=== PATIENT | male | born 1935 | race Caucasian/White ===

== ENCOUNTER → 2023-09-25 15:01 | Outpatient (REF) | payer OTHER, SELFPAY ==
[2023-09-25 16:46] LABS: Blood Urea Nitrogen 17 mg/dl (9-20); Calcium 10.2 mg/dl (8.4-10.2); Carbon Dioxide 27 mmol/L (22-30); Chloride 101 mmol/L (98-107); Glucose 108 mg/dl (70-99); Potassium 4.7 mmol/L (3.5-5.1); Sodium 138 mmol/L (135-145); eGFR > 60.00
[2023-09-25 16:54] LABS: NT-proBNP 4310 pg/ml
== END ==
LOC: REG 15:01
PROVIDERS: ATTENDING PHYSICIAN Internal Medicine Cardiovascular Disease
DX: Z95.2 Presence of prosthetic heart valve (principal); I50.22 Chronic systolic (congestive) heart failure
CPT/HCPCS: 36415; 71046; 80048; 83880

== ENCOUNTER 2023-10-03 12:09 | Emergency (ER) | payer OTHER, SELFPAY ==
[2023-10-03 12:17] VITALS: BP 149/95
[2023-10-03 12:23] VITALS: BP 149/95
[2023-10-03 12:28] VITALS: BMI 31.8
--- NOTE | 2023-10-03 12:39 | ED.GENMED ---
History of Present Illness
General
Chief Complaint: Breathing Problem
Time Seen by Provider: 10/03/23 12:28
Travel History
Have you had any contact with someone who has COVID-19?: No
Do you have any symptoms of coronavirus? Fever > 100 degrees, chills, cough, shortness of breath, sore throat, loss of taste or smell, muscle aches, or headache?: No
History of Present Illness
History of Present Illness:
87-year-old male with history of coronary artery disease status post CABG x 4, hypertension, and hyperlipidemia presents to the emergency department for evaluation of persistent shortness of breath for the past 2 weeks. He saw his sampling theory teacher in
the office last week and was started on Lasix, he is awaiting an outpatient echocardiogram for the symptoms as well. States that he awoke from sleep with severe shortness of breath this morning, has gradually improved throughout the day. He did
gain 2 pounds prior to the initiation of Lasix however notes that his weight has normalized since then. No associated fevers or chills. Denies any chest pain.
Review of Systems
Review of Systems
Allergies reviewed?: Yes
All Other Systems: ROS reviewed and negative except as documented in HPI and ROS
Phy Exam
Physical Exam
Physical Exam:
GEN: Well appearing, NAD, WDWN
HEENT: Oral mucosa moist, no scleral icterus
Cardiac: Regular rate and rhythm
Lung: No respiratory distress, no tachypnea, lungs clear to auscultation bilaterally
MSK: No gross deformity or injuries
Skin: Good color, no pallor or jaundice, no rashes
Neuro: AO x3, moves all extremities freely
Psych: Calm, cooperative
Scores
Heart Failure Risk
Heart Failure Risk Score: Yes
History of Stroke or TIA: No
History of intubation for respiratory distress: No
Heart rate on ED arrival >/= 110: No
SaO2 <90% on arrival on room air: No
HR >/=110 during 3min walk test (or too ill to perform test): No
ECG has acute ischemic changes: No
Urea >/=12mmol/L (BUN 33.6mg/dL): No
Serum CO2>/=35mmol/L: No
Troponin I or T elevated to IN Level (0.4mg/dL): No
NT-proBNP >/=5,000ng/L (5,000pg/ml): No
HF Risk Score: 0
Admission Status: LOW RISK 2.8% Consider discharge to home with f/u visit to PCP/[facility]
Course
Orders/Labs/Results
Orders:
Orders
10/03/23 12:28
Electrocardiogram (*1) Urgent
Reason for Study: Other
Other Reason for Exam: Respiratory Distress
Cardiac Monitoring- Treatment ONCE
EKG- Treatment ONCE
IV Insert/Care/Rem.- Treatment PRN
CR Chest - 2 Views Urgent
Comment:
Reason For Exam: respiratory distress
O2 Therapy [RESP] Urgent
Titrate/Wean O2 to maintain O2 sat greater than (%): 93
Special Instructions: TO MAINTAIN CONTINUOUS O2 SATS >/= 93%
Pulse Ox/cont/shift [RESP] Urgent
Quantity: 1
Special Instructions: continuous pulse ox
10/03/23 12:29
Complete Blood Count/With Diff Urgent
Comprehensive Metabolic Panel Urgent
NT-proBNP Urgent
Troponin I Urgent
10/03/23 13:32
D-Dimer Urgent
Abnormal Lab Results
10/03/23 10/03/23
12:29 13:32
RBC 4.59 L 10^6/uL
(4.70-6.10)
MPV 10.5 H fL
(7.4-10.4)
Monocytes % 11.1 H %
(1.7-9.3)
D-Dimer 0.80 H ug/mlFEU
(0.00-0.50)
Carbon Dioxide 31 H mmol/L
(22-30)
Glucose 155 H mg/dl
(70-99)
Total Bilirubin 1.4 H mg/dl
(0.2-1.3)
10/03/23 12:29
10/03/23 12:29
Vital Signs
Initial and Last Documented VS:
Initial Vital Signs
Temp Pulse Resp Pulse Ox
98.1 F 79 20 96
10/03/23 12:10 10/03/23 12:10 10/03/23 12:10 10/03/23 12:10
Last Documented Vital Signs
Temp Pulse Resp BP Pulse Ox
98.1 F 69 15 152/92 95
10/03/23 12:10 10/03/23 14:00 10/03/23 14:00 10/03/23 14:00 10/03/23 15:30
MDM/Problems Addressed
MDM/Problems Addressed:
Patient's symptoms are consistent with acute on chronic congestive heart failure with paroxysmal nocturnal dyspnea however he remains clinically stable in the emergency department. D-dimer meets age-adjusted criteria thus do not suspect pulmonary
embolism. Doubt this is an acute coronary syndrome given the negative troponin and lack of chest pain. He was able to ambulate in emergency department without any significant degree of dyspnea or hypoxemia. Will have the patient increase his
diuretic for the next 3 days, heart failure follow-up advised through cardiology office
Comment
Comment:
EKG independently interpreted by me shows normal sinus rhythm with a first-degree AV block and a left bundle branch block
*Critical Care Note
Total Time (30-74mins, 75-104mins- exclusive of procedures): Not Applicable
ED Attending Note
-
Portions of this chart may have been created with voice recognition software.� Occasional wrong word or��sound alike� substitutions may have occurred due to the inherent limitations of voice recognition software.
Discharge Plan
Departure
Patient Disposition: Home (Routine Discharge)
Date of Disposition: 10/03/23
Time of Disposition: 15:02
Patient with high blood pressure during this ER visit?: No
Discharge Problem:
Acute HFrEF (heart failure with reduced ejection fraction)
Instructions: *[facility] Heart Failure Instructions
Prescriptions:
No Action
atorvastatin 40 MG tablet
40 mg PO DAILY
lisinopril 20 MG tablet
20 mg PO DAILY
docusate sodium [Colace] 100 MG capsule
100 mg PO BID
hydrochlorothiazide 25 MG tablet
25 mg PO DAILY
Hold Instructions: Discussed restarting with your sampling theory teacher or family physician
multivitamin Tablet
1 tab PO DAILY
polyethylene glycol 3350 [Miralax] 17 gram Powder In Packet
17 g PO DAILY PRN (Reason: constipation)
aspirin 325 mg Tablet
325 mg PO DAILY
escitalopram oxalate 20 mg tablet
20 mg PO DAILY
aripiprazole 2 mg tablet
2 mg PO HS
Referrals:
Horacio Nieves MD [Family Provider] -
Activity Restrictions/Additional Instructions:
Increase your lasix to 40mg daily for the next 3 days, then return to taking 20mg. If your symptoms do not improve, contact your sampling theory teacher Thursday AM
If you develop acutely worsening symptoms, return to the ER for further evaluation
Interventions
Interventions:
*Risk Screen - Suicide Last Done: 10/03/23 12:10
*General Assessment Last Done: 10/03/23 12:10
*Neglect/Abuse Screening Last Done: 10/03/23 12:10
ED- Fall Risk Assessment Last Done: 10/03/23 12:30
*Nursing Disposition Last Done: 10/03/23 15:54
ED- Cardiac Assessment Last Done: 10/03/23 12:30
ED- Pulmonary Assessment Last Done: 10/03/23 12:30
Discharge Date and Time
Discharge Date/Time: 10/03/23 15:55
Print Language: LITHUANIAN
[2023-10-03 12:41] LABS: % Basophils 1.2 % (0-2); % Eosinophils 3.1 % (0-6); % Immature Granulocytes 0.4 % (0-0.5); % Lymphocytes 27.6 % (20.5-51.1); % Monocytes 11.1 % (1.7-9.3); % Neutrophils 56.6 % (42.2-75.2); Absolute Basophils 0.1 10^3/uL (0-0.2); Absolute Eosinophils 0.2 10^3/uL (0-0.7); Absolute Lymphocytes 1.4 10^3/uL (1.2-3.4); Absolute Monocytes 0.6 10^3/uL (0.1-0.6); Absolute Neutrophils 2.9 10^3/uL (1.4-6.5); Hematocrit 40.6 % (39.0-52.0); Hemoglobin 13.9 g/dL (13.0-18.0); Mean Corp Hgb Conc. 34.2 g/dL (33.0-37.0); Mean Corpuscular Hgb 30.3 pg (27.0-31.0); Mean Corpuscular Volume 88.5 fL (80.0-94.0); Mean Platelet Volume 10.5 fL (7.4-10.4); Nucleated Red Blood Cells % 0 % (-); Platelet Count 182 10^3/uL (130-400); Red Blood Cell Count 4.59 10^6/uL (4.70-6.10); Red Cell Dist. Width 13.6 % (11.5-14.5); White Blood Cell Count 5.2 10^3/uL (4.8-10.8)
[2023-10-03 12:55] LABS: ALT (SGPT) 30 U/L (0-50); AST (SGOT) 37 U/L (17-59); Albumin 3.9 g/dl (3.5-5.0); Alkaline Phosphatase 73 U/L (38-126); Blood Urea Nitrogen 17 mg/dl (9-20); Calcium 9.4 mg/dl (8.4-10.2); Carbon Dioxide 31 mmol/L (22-30); Chloride 99 mmol/L (98-107); Estimated Creatinine Clearance 59 ml/min; Glucose 155 mg/dl (70-99); Potassium 3.5 mmol/L (3.5-5.1); Sodium 137 mmol/L (135-145); Total Bilirubin 1.4 mg/dl (0.2-1.3); Total Protein 6.5 g/dl (6.3-8.2); eGFR > 60.00
[2023-10-03 13:00] VITALS: BP 136/78
[2023-10-03 13:08] LABS: NT-proBNP 3730 pg/ml; Troponin I 0.024 ng/ml
[2023-10-03 14:00] VITALS: BP 152/92
== END 2023-10-03 15:55 | disposition home or self-care (01) ==
LOC: EMR 12:09
PROVIDERS: Physician Assistant; EMERGENCY PHYSICIAN Emergency Medicine; FAMILY PHYSICIAN Family Medicine
DX: R06.02 Shortness of breath (principal); I11.0 Hypertensive heart disease with heart failure; I50.22 Chronic systolic (congestive) heart failure; I44.0 Atrioventricular block, first degree; I25.10 Atherosclerotic heart disease of native coronary artery without angina pectoris; Z95.1 Presence of aortocoronary bypass graft; Z79.82 Long term (current) use of aspirin; Z88.1 Allergy status to other antibiotic agents; Z88.2 Allergy status to sulfonamides; Z88.8 Allergy status to other drugs, medicaments and biological substances
CPT/HCPCS: 99284; 94760; 71046; 80053; 83880; 84484; 85025; 85379; 93005

== ENCOUNTER → 2023-10-08 09:43 | Outpatient (REF) | payer OTHER, SELFPAY | LOC: HWRCS 09:43 | PROVIDERS: ATTENDING PHYSICIAN Internal Medicine Cardiovascular Disease; FAMILY PHYSICIAN Family Medicine | DX: Z95.2 Presence of prosthetic heart valve (principal) | CPT/HCPCS: 93306 ==

== ENCOUNTER 2023-10-08 22:18 | Inpatient (IN) | payer OTHER, SELFPAY ==
[2023-10-08 14:52] VITALS: BMI 29.7
[2023-10-08 14:56] VITALS: BP 147/92
[2023-10-08 15:23] LABS: % Basophils 0.9 % (0-2); % Eosinophils 3.2 % (0-6); % Immature Granulocytes 0.6 % (0-0.5); % Lymphocytes 26.8 % (20.5-51.1); % Monocytes 11.1 % (1.7-9.3); % Neutrophils 57.4 % (42.2-75.2); Absolute Basophils 0.1 10^3/uL (0-0.2); Absolute Eosinophils 0.2 10^3/uL (0-0.7); Absolute Lymphocytes 1.8 10^3/uL (1.2-3.4); Absolute Monocytes 0.8 10^3/uL (0.1-0.6); Hematocrit 41.3 % (39.0-52.0); Hemoglobin 13.7 g/dL (13.0-18.0); Mean Corp Hgb Conc. 33.2 g/dL (33.0-37.0); Mean Corpuscular Hgb 30.3 pg (27.0-31.0); Mean Corpuscular Volume 91.4 fL (80.0-94.0); Mean Platelet Volume 10.9 fL (7.4-10.4); Nucleated Red Blood Cells % 0 % (-); Platelet Count 162 10^3/uL (130-400); Red Blood Cell Count 4.52 10^6/uL (4.70-6.10); Red Cell Dist. Width 13.7 % (11.5-14.5); White Blood Cell Count 6.9 10^3/uL (4.8-10.8)
[2023-10-08 15:36] LABS: ALT (SGPT) 25 U/L (0-50); AST (SGOT) 31 U/L (17-59); Alkaline Phosphatase 68 U/L (38-126); Blood Urea Nitrogen 18 mg/dl (9-20); Calcium 9.6 mg/dl (8.4-10.2); Carbon Dioxide 30 mmol/L (22-30); Chloride 96 mmol/L (98-107); Glucose 111 mg/dl (70-99); Potassium 3.6 mmol/L (3.5-5.1); Sodium 135 mmol/L (135-145); Total Bilirubin 1.6 mg/dl (0.2-1.3); Total Protein 6.6 g/dl (6.3-8.2); eGFR 58.89
[2023-10-08 15:46] LABS: NT-proBNP 4030 pg/ml; Troponin I 0.023 ng/ml
--- NOTE | 2023-10-08 18:02 | ED.GENMED ---
History of Present Illness
General
Chief Complaint: Breathing Problem
Time Seen by Provider: 10/08/23 17:12
Travel History
Have you had any contact with someone who has COVID-19?: No
Do you have any symptoms of coronavirus? Fever > 100 degrees, chills, cough, shortness of breath, sore throat, loss of taste or smell, muscle aches, or headache?: No
History of Present Illness
History of Present Illness:
87-year-old male with history of heart failure with reduced ejection fraction presents to the emergency department for evaluation of persistent dyspnea that typically occurs upon awakening each morning. He was seen in the emergency department 5
days ago by myself for this complaint, at that time his workup was unrevealing and he was discharged on an increased dose of diuretics. He followed up with his car distributor today and had an outpatient echocardiogram showing marginal decrease in his
ejection fraction as well as increased right heart pressures. He was then sent to the emergency department for a PE rule out although his D-dimer from this week and was negative. He states he has minimal symptoms currently, denies any chest pain
or leg swelling
Review of Systems
Review of Systems
Allergies reviewed?: Yes
All Other Systems: ROS reviewed and negative except as documented in HPI and ROS
Phy Exam
Physical Exam
Physical Exam:
GEN: Well appearing, NAD, WDWN
HEENT: Oral mucosa moist, no scleral icterus
Cardiac: Regular rate
Lung: No respiratory distress, no tachypnea, lungs clear to auscultation bilaterally
MSK: No gross deformity or injuries
Skin: Good color, no pallor or jaundice, no rashes
Neuro: AO x3, moves all extremities freely
Psych: Calm, cooperative
Scores
Heart Failure Risk
Heart Failure Risk Score: Not Applicable
Course
Orders/Labs/Results
Orders:
Orders
10/08/23 15:00
Electrocardiogram (*1) Urgent
Reason for Study: Shortness of Breath
EKG- Treatment ONCE
10/08/23 15:06
Complete Blood Count/With Diff Urgent
Comprehensive Metabolic Panel Urgent
Pro-BNP [NT-proBNP] Urgent
Troponin I Urgent
10/08/23 17:15
CT Chest Pe Study Urgent
Comment:
Reason For Exam: MELENDEZ
Abnormal Lab Results
10/08/23
15:06
RBC 4.52 L 10^6/uL
(4.70-6.10)
MPV 10.9 H fL
(7.4-10.4)
Absolute Monos (auto) 0.8 H 10^3/uL
(0.1-0.6)
Immature Gran % 0.6 H %
(0-0.5)
Monocytes % 11.1 H %
(1.7-9.3)
Chloride 96 L mmol/L
(98-107)
Glucose 111 H mg/dl
(70-99)
Total Bilirubin 1.6 H mg/dl
(0.2-1.3)
10/08/23 15:06
10/08/23 15:06
Vital Signs
Initial and Last Documented VS:
Initial Vital Signs
Temp Pulse Resp BP Pulse Ox
98.4 F 77 18 147/92 96
10/08/23 14:56 10/08/23 14:56 10/08/23 14:56 10/08/23 14:56 10/08/23 14:56
Last Documented Vital Signs
Temp Pulse Resp BP Pulse Ox
98.4 F 77 18 147/92 96
10/08/23 14:56 10/08/23 14:56 10/08/23 14:56 10/08/23 14:56 10/08/23 14:56
MDM/Problems Addressed
MDM/Problems Addressed:
Imaging was obtained for further rule out of pulmonary embolism, interestingly he has quite large bilateral pleural effusions right worse than left which are not reflected on his chest x-rays. This is likely causing his daily dyspnea. Will admit
to the hospitalist service for IR consultation and thoracentesis due to the degree of symptoms with which he presents
*Critical Care Note
Total Time (30-74mins, 75-104mins- exclusive of procedures): Not Applicable
ED Attending Note
-
Portions of this chart may have been created with voice recognition software.� Occasional wrong word or��sound alike� substitutions may have occurred due to the inherent limitations of voice recognition software.
Discharge Plan
Departure
Patient Disposition: Admit
Date of Disposition: 10/08/23
Time of Disposition: 20:13
Admit to: Med/Surg
Presentation/result/management discussed w/ accepting MD/DO: Hospitalist
Discharge Problem:
Bilateral pleural effusion, Acute respiratory insufficiency
Prescriptions:
No Action
atorvastatin 40 MG tablet
40 mg PO DAILY
lisinopril 20 MG tablet
20 mg PO DAILY
docusate sodium [Colace] 100 MG capsule
100 mg PO BID
hydrochlorothiazide 25 MG tablet
25 mg PO DAILY
Hold Instructions: Discussed restarting with your car distributor or family physician
multivitamin Tablet
1 tab PO DAILY
polyethylene glycol 3350 [Miralax] 17 gram Powder In Packet
17 g PO DAILY PRN (Reason: constipation)
aspirin 325 mg Tablet
325 mg PO DAILY
escitalopram oxalate 20 mg tablet
20 mg PO DAILY
aripiprazole 2 mg tablet
2 mg PO HS
Referrals:
Horacio Nieves MD [Family Provider] -
Interventions
Interventions:
*Risk Screen - Suicide Last Done: 10/08/23 14:58
*General Assessment Last Done: 10/08/23 14:58
*Neglect/Abuse Screening Last Done: 10/08/23 14:58
ED- Cardiac Assessment Last Done: 10/08/23 18:04
ED- Pulmonary Assessment Last Done: 10/08/23 18:04
Discharge Date and Time
Print Language: COLOMBIAN
[2023-10-08 20:00] VITALS: BP 175/93
--- NOTE | 2023-10-08 20:42 | HPS.HSE ---
Family Physician
-
Family Physician: Horacio Nieves
Chief Complaint
-
shortness of breath
History of Present Illness
Mr. Sanju Byrnes is a 87 yo man with hx HFrEF (TTE done today with EF 25%, decreased from 32% 202, moderate MR, severe s/p TAVR 2017, CAD s/p CABG 2013, HTN, HLD, DM2, hx tobacco use presents to the ER with shortness of breath. Patient was
seen in ER 5 days ago with same complaint and discharged on an increased dose of diuretics.
Patient states that he has been short of breath for several weeks. His lasix was recently increased from 20 to 40mg. No LE swelling. No chest pain. He reports feeling fatigued for months. No fevers/chills. No nausea/vomiting/diarrhea.
Patient lives at home with his daughter. He does not use a cane or walker. He performs all ADL's, states not very active.
Medical History
Past Medical History
Past Medical History: Reports Other (HFrEF (TTE done today with EF 25%, decreased from 32% 2023, moderate MR, severe s/p TAVR 2017, CAD s/p CABG 2012, HTN, HLD, DM2, hx tobacco use )
Past Surgical History: Reports Cardiac
Social History
Tobacco: Former Smoker
Family History
Family History: Not pertinent
Allergies / Home Medications
Allergies reflects when Allergies were last updated in [facility].
Home Medications with original date entered in [facility]
Allergy/Medication List:
Allergies
Allergy/AdvReac Type Severity Reaction Status Date / Time
carvedilol [From Coreg] Allergy depression Verified 10/08/23 14:56
clarithromycin [From Biaxin] Allergy turns Verified 10/08/23 14:56
tongUe fenton
simvastatin [From Zocor] Allergy MUSCLE PAIN Verified 10/08/23 14:56
Sulfa (Sulfonamide Allergy turns Verified 10/08/23 14:56
Antibiotics) tongUe fenton
Home Medications
atorvastatin 40 mg tablet 40 mg PO DAILY High cholesterol 10/29/17
docusate sodium 100 mg capsule (Colace) 100 mg PO BID Constipation 10/29/17
lisinopril 20 mg tablet 20 mg PO DAILY Blood pressure 10/29/17
aripiprazole 2 mg tablet 2 mg PO HS Mental Health/Anxiety 07/16/22
aspirin 325 mg tablet 325 mg PO DAILY Blood clot prevention/tx 07/16/22
escitalopram oxalate 20 mg tablet 20 mg PO DAILY Depression 07/16/22
multivitamin 1 tab PO DAILY Supplement 07/16/22
polyethylene glycol 3350 17 gram oral powder packet (Miralax) 17 g PO DAILY PRN constipation 07/16/22
amlodipine 5 mg tablet 2.5 mg PO HS 10/08/23
furosemide 20 mg tablet 20 mg PO DAILY 10/08/23
psyllium seed (sugar) oral powder 1 tsp PO HS 10/08/23
Review of Systems
-
History Source: Patient
A 12 point ROS was completed and negative except as noted: Yes
Physical Exam
Vital Signs
Vital Signs
Temp Pulse Resp BP Pulse Ox
98.4 F 72 16 175/93 94
10/08/23 14:56 10/08/23 20:30 10/08/23 20:30 10/08/23 20:00 10/08/23 20:30
Physical Exam
General: No Apparent Distress
HEENT: PERRLA
Respiratory: Decreased Breath Sounds (b/l bases); No Wheezes
Cardiac: S1/S2, Regular Rhythm and JVD
GI: Soft, Non Tender and Non Distended
Musculoskeletal: No Edema
Skin: Warm and Dry; No Rash
Neuro: AO x 3
Psych: Calm
Laboratory Results
-
10/08/23 15:06
10/08/23 15:06
Laboratory Results
Total Bilirubin 1.6 mg/dl (0.2-1.3) H 10/08/23 15:06
AST 31 U/L (17-59) 10/08/23 15:06
ALT 25 U/L (0-50) 10/08/23 15:06
Alkaline Phosphatase 68 U/L (38-126) 10/08/23 15:06
Troponin I 0.023 ng/ml 10/08/23 15:06
Data Reviewed
-
Diagnostic Radiology: Report Reviewed by me
Lab Data: Labs Reviewed by me
Impression/Plan
-
Mr. Sanju Byrnes is a 87 yo man with hx HFrEF (TTE done today with EF 25%, decreased from 32% 2022, moderate MR, severe s/p TAVR 2017, CAD s/p CABG 2012, HTN, HLD, DM2, hx tobacco use presents to the ER with shortness of breath. Patient was
seen in ER 5 days ago with same complaint and discharged on an increased dose of diuretics.
Triage VS: T 98.4, P 77, RR 18, BP 147/92, SpO2 96%
Labs: WBC 6.9, Hg 13.7, PLT 162, Na 135, K+ 3.6, Cl 96, BUN 18, Cr 1.2, Glucose 111
BNP 4030
[address] 0[address]
CONCLUSION:
1. No CT evidence for pulmonary embolism.
2. No aortic dissection. No aneurysm.
3. Large right and moderate left pleural effusion and basilar atelectasis.
4. Cardiomegaly. Mild airspace pulmonary edema.
Heart Failure Reduced EF, Acute Exacerbation
Bilateral pleural effusions
Moderate MR
Severe s/p TAVR
-admit to telemetry
-IV Lasix with K repletion now; continue IV lasix 40mg BID
-cardiology consult
-may need repeat CXR in 2-3 days to assess need for thoracentesis
-daily weights, strict I/O
Coronary Artery Disease s/p CABG
-continue [employer] asa/statin
Essential Hypertension
-[employer] Lisinopril
Hyperlipidemia
-[employer]ING [employer] statin
DVT PPx Lovenox
FULL CODE
[2023-10-08] MEDS: KCL 40 MEQ PO (21:43)
[2023-10-08] MEDS: LASIX 40 MG IV (21:44)
[2023-10-08 21:45] VITALS: BP 174/91
[2023-10-08 22:00] VITALS: BP 166/87
[2023-10-08 22:59] VITALS: BP 161/88
[2023-10-08 23:00] VITALS: BMI 31.1
[2023-10-08] MEDS: NORVASC 2.5 MG PO (23:25)
[2023-10-08] MEDS: ABILIFY 2 MG PO (23:26)
[2023-10-09] VITALS (7 sets, daily range): BP systolic 135–171; BP diastolic 71–90; PULSE 80; O2SAT 94; BMI 30.2
[2023-10-09 05:08] LABS: Hematocrit 37.9 % (39.0-52.0); Hemoglobin 13.3 g/dL (13.0-18.0); Mean Corp Hgb Conc. 35.1 g/dL (33.0-37.0); Mean Corpuscular Hgb 30.8 pg (27.0-31.0); Mean Corpuscular Volume 87.7 fL (80.0-94.0); Mean Platelet Volume 10.8 fL (7.4-10.4); Platelet Count 160 10^3/uL (130-400); Red Blood Cell Count 4.32 10^6/uL (4.70-6.10); Red Cell Dist. Width 13.7 % (11.5-14.5); White Blood Cell Count 6.4 10^3/uL (4.8-10.8)
[2023-10-09 05:42] LABS: ALT (SGPT) 26 U/L (0-50); AST (SGOT) 31 U/L (17-59); Albumin 3.7 g/dl (3.5-5.0); Alkaline Phosphatase 67 U/L (38-126); Blood Urea Nitrogen 17 mg/dl (9-20); Carbon Dioxide 30 mmol/L (22-30); Chloride 101 mmol/L (98-107); Direct Bilirubin 0.2 mg/dl (0.0-0.4); Estimated Creatinine Clearance 51 ml/min; Glucose 96 mg/dl (70-99); HDL Cholesterol 49 mg/dl; LDL Cholesterol, Calculated 54 mg/dl; Magnesium 2.2 mg/dl (1.6-2.3); Potassium 3.9 mmol/L (3.5-5.1); Sodium 137 mmol/L (135-145); Total Bilirubin 1.2 mg/dl (0.2-1.3); Total Cholesterol 121 mg/dl (50-199); Total Protein 6.2 g/dl (6.3-8.2); Triglyceride 94 mg/dl (10-149); Very Low Density Lipoprotein 18 mg/dl (0-30); eGFR > 60.00
[2023-10-09 06:00] LABS: Vitamin D, 25-OH*** 27.5 ng/mL (30-80)
[2023-10-09 06:14] LABS: TSH Reflex To Free T4 2.86 uIU/ml (0.47-4.68)
[2023-10-09 06:34] LABS: Vitamin B12 898 pg/ml (239-931)
[2023-10-09 07:50] LABS: Glucose - Point of Care 106 mg/dl (70-99)
[2023-10-09 08:31] LABS: Glycohemoglobin (HgbA1c) 6.3 % (4.0-5.6)
--- NOTE | 2023-10-09 08:36 | W.PN.HOSP.TC ---
Today's Communication/Plan
-
IV Lasix.
Assessment / Plan
Assessment / Plan
Physical exam:
General: Acutely ill
HEENT: Normocephalic, Atraumatic and Moist Mucous Membranes
Respiratory: Bilateral coarse crackles; Negative Wheezes or Rhonchi
Cardiac: Regular Rhythm and S1/S2
GI: Soft, Nontender and Nondistended
Musculoskeletal: No Clubbing, No Cyanosis and No Edema
Neuro: Awake, Alert and Oriented
Psych: Calm
A/P:
Heart Failure Reduced EF, Acute Exacerbation
Bilateral pleural effusions
Moderate MR
Severe s/p TAVR
IV diuretics, Lasix 40 mg twice a day
Monitor strict I/O
Monitor daily weight
Monitor renal function and electrolytes
Reviewed latest echocardiogram on our system and EF in September down to 25% from 35% previously.
Continue guideline-directed medical therapy for heart failure (GDMT)--> unable to do beta-javier due to bradycardia. Continue ALPHONSO inhibitor. Consideration for SGLT2 inhibitor.
Fluid restriction
Salt restriction
Heart failure education
Follow up clinical response
Appreciated cardiology consult
Repeat CXR in 2-3 days to assess need for thoracentesis
Coronary Artery Disease s/p CABG
-continue [employer] asa/statin
Essential Hypertension
-[employer] Lisinopril, amlodipine
Hyperlipidemia
-[employer] statin
Depression
-On escitalopram and Abilify
DVT PPx Lovenox
FULL CODE
Total time spent on today's encounter was 52 minutes which included time spent in counseling the patient/family regarding diagnosis and treatment plan as listed above, goals of care, and symptom management. Case was discussed with nursing staff,
specialists, and care coordinators/case management. All labs and imaging personally reviewed by me. Remainder the time spent in detailed review of previous records, lab data, imaging, and other medical provider documentation.
Anticipated Discharge: > 48 hours
Subjective/Interval History
-
Date of Service: October 09, 2023
Patient feels less shortness of breath. No chest pain. Afebrile
Objective Data
-
Labs:
Laboratory Results
10/09/23 10/09/23
04:51 04:52
WBC 6.4
Hgb 13.3
Hct 37.9 L
Plt Count 160
Sodium 137
Potassium 3.9
Chloride 101
Carbon Dioxide 30
BUN 17
Creatinine 1.0
Glucose 96
Calcium 9.0
Total Bilirubin 1.2
AST 31
ALT 26
Alkaline Phosphatase 67
Vital Signs:
Vital Signs
Temp Pulse Resp BP Pulse Ox
98.0 F 76 18 138/76 95
10/09/23 03:14 10/09/23 03:14 10/09/23 03:14 10/09/23 03:14 10/09/23 03:14
I&O
10/08/23 10/09/23 10/10/23
06:59 06:59 06:59
Intake Total 240 / 240
Output Total 1100 / 1100
Balance -860 / -860
--- NOTE | 2023-10-09 09:59 | CON.CAR ---
Addendum entered and electronically signed by Horacio Johnson MD 10/09/23 14:32:
87-year-old man with known chronic HFrEF, TAVR, ischemic cardiomyopathy status post CABG, admitted now with progressive dyspnea over several weeks despite up titration of furosemide as an outpatient. Episodes of PND without edema and no chest pain.
proBNP is 4030, CT scan shows large right and moderate left pleural effusion
PMH: HFrEF, EF 25%, TAVR 2017, history of CABG 2012, left bundle branch block, hypertension, hyperlipidemia, type 2 diabetes and history of tobacco abuse
SH: Former smoker, no alcohol, , lives with daughter, works for [employer], worked in [employer] still drives
FH: Noncontributory
PSH: As above
Allergies carvedilol, clarithromycin, simvastatin, sulfa
Outpatient meds reviewed
ROS negative except as above
171/90, pulse 79, respirate 16, afebrile, intake and output -0.9 L, weight is 90.2 kg, had been 94.8 kg on the , daughter is at bedside
No distress, lungs are relatively clear, head neck exam unremarkable, abdomen benign, regular rate and rhythm, no obvious murmurs, JVD probably 8-10, 1+ edema
Hemoglobin is 13.3, BUN and creatinine are 17 and 1.0, potassium 3.9, proBNP is 4030 with troponin 0.023, LDL is 54
ECG sinus rhythm first-degree AV block, PVCs, left bundle branch block
Plan:
He presents with acute on chronic HFrEF and pleural effusions. It sounds as if GDMT has been difficult to optimize related to hypotension. Currently not on beta-javier, spironolactone, Entresto, SGLT2 antagonists.
Continue IV furosemide. Hernandez SGLT2 antagonist. Consider spironolactone, but should discuss with primary audiovisual librarian. Given EF, should probably consider PHYSICAL THERAPY DIRECTOR with or without ICD, this could be done as an outpatient.
Thoracentesis could be considered if effusions fail to improve with IV furosemide. Will recheck chest x-ray on Thursday.
Trial of beta-javier, need to find out about Entresto, spironolactone, SGLT2 antagonists, ICD etc.
Original Note:
Consultation
Consultation Request
Date/Time Consultation Requested: 10/09/2023
Date/Time Consultation Performed: 10/09/2023
Requesting Provider: Dr. Maradiaga
Performing Provider: Dr. TONY Johnson
Reason for Consultation: CHF
Medical History
-
History of Present Illness:
HPI: Sanju is an 87 year old male with PMH of chronic HFrEF, CM, TAVR, CAD s/p CABG, HTN, HLD, LBBB, PVCs, and DM2. He presented to [facility] for evaluation of progressively worsening SOB. He states SOB started weeks ago and he was seen in the
cardiology office and was started on PO lasix 20mg daily. This then was later uptitrated to 40mg daily. Despite increased dose, he reported no significant diuresis at home and his SOB continued to worsen. He then came to ER for evaluation 10/07. He
reports he has been waking up gasping for air. Denies any LE edema and denies any weight gain at home. In ER, he was found to have elevated proBNP at [address] of chest showed no evidence of PE, however he was noted to have large R and moderate L
pleural effusion with mild pulmonary edema. He was started on IV lasix and reports some improvement in his breathing this AM. He denies chest pain or palpitations.
PMH:
Chronic HFrEF
CM, EF 25% by echo 10/08/23
s/p TAVR for severe 2017
CAD s/p CABG with VILLAR to LAD, SVG to Diag, SVG seq to Ramus and OM-1, SVG to distal RCA at [facility] 09/2012
Hypertension
Hyperlipidemia
Chronic LBBB
h/o frequent PVCs, previously 4% PVC burden by monitoring 2017
DM 2
h/o tobacco abuse
Past Medical History
Past Medical History: Other (In HPI)
Past Surgical History: Cardiac (CABG x4 2012, TAVR 2017), Tonsilectomy and Other (Hernia repair)
Social History
Tobacco: Former Smoker
Alcohol: None
Drug: None
Living: With Family
Employment: Retired
Family History
Family History: CAD, Cancer and Hypertension
Allergies / Home Medications
Allergy/AdvReac Type Severity Reaction Status Date / Time
carvedilol [From Coreg] Allergy depression Verified 10/08/23 14:56
clarithromycin [From Biaxin] Allergy turns Verified 10/08/23 14:56
tongUe fenton
simvastatin [From Zocor] Allergy MUSCLE PAIN Verified 10/08/23 14:56
Sulfa (Sulfonamide Allergy turns Verified 10/08/23 14:56
Antibiotics) tongUe fenton
�Medication �Instructions �Recorded �Confirmed �Type
atorvastatin 40 mg tablet 40 mg PO DAILY High cholesterol 10/29/17 10/08/23 History
docusate sodium 100 mg capsule 100 mg PO BID Constipation 10/29/17 10/08/23 History
(Colace)
lisinopril 20 mg tablet 20 mg PO DAILY Blood pressure 10/29/17 10/08/23 History
aripiprazole 2 mg tablet 2 mg PO HS Mental Health/Anxiety 07/16/22 10/08/23 History
aspirin 325 mg tablet 325 mg PO DAILY Blood clot 07/16/22 10/08/23 History
prevention/tx
escitalopram oxalate 20 mg tablet 20 mg PO DAILY Depression 07/16/22 10/08/23 History
multivitamin 1 tab PO DAILY Supplement 07/16/22 10/08/23 History
polyethylene glycol 3350 17 gram 17 g PO DAILY PRN constipation 07/16/22 10/08/23 History
oral powder packet (Miralax)
amlodipine 5 mg tablet 2.5 mg PO HS 10/08/23 10/08/23 History
furosemide 20 mg tablet 20 mg PO DAILY 10/08/23 10/08/23 History
psyllium seed (sugar) oral powder 1 tsp PO HS 10/08/23 10/08/23 History
Review of Systems
-
History Source: Patient
All other systems: Negative unless noted
Physical Exam
Vital Signs
Temp Pulse Resp BP Pulse Ox
97.6 F 77 14 142/87 95
10/09/23 07:40 10/09/23 07:40 10/09/23 07:40 10/09/23 07:40 10/09/23 07:40
Lab Results
10/09/23 04:51
10/09/23 04:52
Troponin I 0.023 ng/ml 10/08/23 15:06
Cgj-M-Khlvvonjoln Pept 4030 pg/ml 10/08/23 15:06
Physical Exam
General: Well Developed, Well Nourished and No Apparent Distress
HEENT: Normocephalic, Anicteric and Moist Mucous Membranes
Respiratory: Crackles and Non Labored Respirations
Cardiac: S1/S2 and Regular Rhythm
Musculoskeletal: No Clubbing, No Cyanosis and No Edema
Skin: Warm and Dry
Neuro: AO x 3 and Nonfocal/Grossly Intact
Psych: Calm
Impression / Plan
-
PCP: Dr. Nieves
Remote Control Assembler: Dr. Strickland
Impression:
Presented with progressive SOB
Acute on chronic HFrEF
b/l pleural effusions
CM, EF 25% by echo 10/08/23
s/p TAVR for severe 2017
CAD s/p CABG with VILLAR to LAD, SVG to Diag, SVG seq to Ramus and OM-1, SVG to distal RCA at [facility] 09/2012
Hypertension
Hyperlipidemia
Chronic LBBB
h/o frequent PVCs, previously 4% PVC burden by monitoring 2018
DM 2
h/o tobacco abuse
48 hour Holter 02/10/18: SR heart rate ranging 45-111 bpm, no significant pauses, occasional to frequent PVCs burden of 4%
Echo 01/27/22: EF 30-35%, mild MR, s/p TAVR with mean gradient 18 mmHg, mild aortic regurgitation
Echo 07/17/2022: EF 35%, paradoxical septal motion consistent with left bundle branch block, inferior and inferolateral wall hypokinesis, stage I diastolic dysfunction, mildly enlarged RV size, normal RV function, mild MR, #26 Driscoll JOZEF 3 TAVR
with peak/mean gradients 22/14 mmHg, mild AR, no significant change compared to prior
Echo 10/08/2023: EF 25%, global hypokinesis with regional variation, inferior and inferolateral rodas are more severely hypokinetic, stage II diastolic dysfunction, at least moderate MR, well-seated TAVR with peak/mean gradients 12/7 mmHg, mild
paravalvular AI, moderate TR, estimated PAP 59 mmHg
Plan:
-Presented with progressive shortness of breath. Found to be in acute heart failure with proBNP 4030. Chest CT with large right and moderate left pleural effusions.
-Diuresing with IV Lasix. Continue IV Lasix 40 mg twice daily.
-Creatinine stable at 1.0. Weight down to 198 pounds.
-Follow daily weights, I&O's.
-CHF education
-Echo 10/07 with EF down to 25%. Previously approximately 35%. On lisinopril 20 mg daily as outpatient.
-EKG SR with 1st degree AV block and PVCs. Stable. Troponin 0.023. No chest pain.
-Previously has had significant bradycardia which his why he is not on BB medication. Discussed PPM in the past, however was deferred in the past and has Linq monitor in place.
-Blood pressure is stable, however he does have history of orthostatic hypotension which previously has limited up titration of medical therapy.
-Consider SGLT2 inhibitor. Will have case management assist the cost.
-Consider thoracentesis for pleural effusions.
-Spoke to patient's daughter on the phone for 7:15, reviewing clinical course and plan at this time.
HPI: Sanju is an 87 year old male with PMH of chronic HFrEF, CM, TAVR, CAD s/p CABG, HTN, HLD, LBBB, PVCs, and DM2. He presented to [facility] for evaluation of progressively worsening SOB. He states SOB started weeks ago and he was seen in the
cardiology office and was started on PO lasix 20mg daily. This then was later uptitrated to 40mg daily. Despite increased dose, he reported no significant diuresis at home and his SOB continued to worsen. He then came to ER for evaluation 10/07. He
reports he has been waking up gasping for air. Denies any LE edema and denies any weight gain at home. In ER, he was found to have elevated proBNP at [address] of chest showed no evidence of PE, however he was noted to have large R and moderate L
pleural effusion with mild pulmonary edema. He was started on IV lasix and reports some improvement in his breathing this AM. He denies chest pain or palpitations.
Data Reviewed
-
EKG: Tracing Personally Visualized and interpreted
CT Scan: Report Reviewed by me
Medical Tests (Nuc Med, Echo etc): Report Reviewed by me
Labs: Labs Reviewed by me
Old Records: Reviewed
[2023-10-09] MEDS: ASPIRIN 325 MG PO (10:44)
[2023-10-09] MEDS: COLACE 100 MG PO ×2 (10:44→21:31)
[2023-10-09] MEDS: LASIX 40 MG IV ×2 (10:44→16:44)
[2023-10-09] MEDS: LEXAPRO 20 MG PO (10:45)
[2023-10-09] MEDS: LIPITOR 40 MG PO (10:45)
[2023-10-09] MEDS: ZESTRIL 20 MG PO (10:45)
[2023-10-09 11:48] LABS: Glucose - Point of Care 170 mg/dl (70-99)
--- NOTE | 2023-10-09 16:42 | CM ---
Met with patient at bedside; initial assessment completed
Pharmacy verified: two listed; Preference is [facility], [address], [place], [place]
Patient lives in his daughter's one floor home; 1 step to enter
PLOF: ambulates without a device but has a cane; reported he needs some assistance with ADLs; he bathes, dresses, and feeds self; daughter assists with medication administration; has not driven in 5-6 months
PT recommends home health and they will monitor for Skilled PT needs
SNF/Rehab/Home Health utilization history: none
Transport: daughter will provide ride home
Plan: to be determined pending hospital course; monitor for home health vs skilled PT @ discharge
[2023-10-09] MEDS: LOVENOX 40 MG SC (16:45)
[2023-10-09 16:56] LABS: Glucose - Point of Care 143 mg/dl (70-99)
[2023-10-09] MEDS: ABILIFY 2 MG PO (21:31)
[2023-10-09] MEDS: NORVASC 2.5 MG PO (21:32)
[2023-10-09 21:43] LABS: Glucose - Point of Care 109 mg/dl (70-99)
[2023-10-10] VITALS (7 sets, daily range): BP systolic 128–168; BP diastolic 60–94; BMI 30.1
[2023-10-10 07:43] LABS: Blood Urea Nitrogen 20 mg/dl (9-20); Calcium 9.3 mg/dl (8.4-10.2); Carbon Dioxide 31 mmol/L (22-30); Chloride 97 mmol/L (98-107); Estimated Creatinine Clearance 58 ml/min; Glucose 116 mg/dl (70-99); Magnesium 2.4 mg/dl (1.6-2.3); Potassium 4.1 mmol/L (3.5-5.1); Sodium 136 mmol/L (135-145); eGFR > 60.00
[2023-10-10 07:54] LABS: Glucose - Point of Care 112 mg/dl (70-99)
--- NOTE | 2023-10-10 08:06 | W.PN.HOSP.TC ---
Today's Communication/Plan
-
Continue IV Lasix
Assessment / Plan
Assessment / Plan
Physical exam:
General: Acutely ill
HEENT: Normocephalic, Atraumatic and Moist Mucous Membranes
Respiratory: Bilateral coarse crackles; Negative Wheezes or Rhonchi
Cardiac: Regular Rhythm and S1/S2
GI: Soft, Nontender and Nondistended
Musculoskeletal: No Clubbing, No Cyanosis and No Edema
Neuro: Awake, Alert and Oriented
Psych: Calm
A/P:
Heart Failure Reduced EF, Acute Exacerbation
Bilateral pleural effusions
Moderate MR
Severe s/p TAVR
IV diuretics, Lasix 40 mg twice a day
Monitor strict I/O
Monitor daily weight
Monitor renal function and electrolytes
Reviewed latest echocardiogram on our system and EF in September down to 25% from 35% previously.
Continue guideline-directed medical therapy for heart failure (GDMT)--> unable to do beta-javier due to bradycardia. Continue ALPHONSO inhibitor. Consideration for SGLT2 inhibitor.
Fluid restriction
Salt restriction
Heart failure education
Follow up clinical response
Appreciated cardiology consult
Repeat CXR in 2-3 days to assess need for thoracentesis
Coronary Artery Disease s/p CABG
-continue HEATER FURNACE asa/statin
Essential Hypertension
-HEATER FURNACE Lisinopril, amlodipine
Hyperlipidemia
-HEATER FURNACE statin
Depression
-On escitalopram and Abilify
DVT PPx Lovenox
FULL CODE
Anticipated Discharge: 24 - 48 hours
Subjective/Interval History
-
Date of Service: October 10, 2023
Patient feels better overall. No chest pain
Objective Data
-
Labs:
Laboratory Results
10/10/23
06:36
Sodium 136
Potassium 4.1
Chloride 97 L
Carbon Dioxide 31 H
BUN 20
Creatinine 1.0
Glucose 116 H
Calcium 9.3
Vital Signs:
Vital Signs
Temp Pulse Resp BP Pulse Ox
97.5 F 77 16 132/60 95
10/10/23 07:20 10/10/23 07:20 10/10/23 07:20 10/10/23 07:20 10/10/23 07:20
I&O
10/09/23 10/10/23 10/11/23
06:59 06:59 06:59
Intake Total 240 / 240 1160 / 1160
Output Total 1100 / 1100 1999 / 1999
Balance -860 / -860 -840 / -840
[2023-10-10] MEDS: ASPIRIN 325 MG PO (09:10)
[2023-10-10] MEDS: LIPITOR 40 MG PO (09:10)
[2023-10-10] MEDS: COLACE 100 MG PO ×2 (09:11→21:28)
[2023-10-10] MEDS: ZESTRIL 20 MG PO (09:11)
[2023-10-10] MEDS: LEXAPRO 20 MG PO (09:11)
[2023-10-10] MEDS: LASIX 40 MG IV ×2 (09:11→17:55)
--- NOTE | 2023-10-10 16:29 | W.PN.CARDCBS ---
Today's Communication / Plan
-
Switch to oral furosemide 60 mg daily
Hernandez Entresto and SGLT2 antagonist
Add spironolactone 12.5 mg twice daily
No beta-javier. History of depression.
Evaluate as outpatient for ICD
Patient will be ready for discharge tomorrow or Thursday
Impression / Plan
-
PCP: Dr. Nieves
Deckhand Shrimp Boat: Dr. Strickland
Impression:
Presented with progressive SOB
Acute on chronic HFrEF
b/l pleural effusions
CM, EF 25% by echo 10/08/23
s/p TAVR for severe 2017
CAD s/p CABG with VILLAR to LAD, SVG to Diag, SVG seq to Ramus and OM-1, SVG to distal RCA at [facility] 09/2012
Hypertension
Hyperlipidemia
Chronic LBBB
h/o frequent PVCs, previously 4% PVC burden by monitoring 2018
DM 2
h/o tobacco abuse
48 hour Holter 02/10/18: SR heart rate ranging 45-111 bpm, no significant pauses, occasional to frequent PVCs burden of 4%
Echo 01/27/22: EF 30-35%, mild MR, s/p TAVR with mean gradient 18 mmHg, mild aortic regurgitation
Echo 07/17/2022: EF 35%, paradoxical septal motion consistent with left bundle branch block, inferior and inferolateral wall hypokinesis, stage I diastolic dysfunction, mildly enlarged RV size, normal RV function, mild MR, #26 Driscoll JOZEF 3 TAVR
with peak/mean gradients 22/14 mmHg, mild AR, no significant change compared to prior
Echo 10/08/2023: EF 25%, global hypokinesis with regional variation, inferior and inferolateral rodas are more severely hypokinetic, stage II diastolic dysfunction, at least moderate MR, well-seated TAVR with peak/mean gradients 12/7 mmHg, mild
paravalvular AI, moderate TR, estimated PAP 59 mmHg
Plan:
He presents with acute on chronic HFrEF and pleural effusions. It sounds as if GDMT has been difficult to optimize related to hypotension. Currently not on beta-javier, spironolactone, Entresto, SGLT2 antagonists.
Continue IV furosemide. Hernandez SGLT2 antagonist. Consider spironolactone, but should discuss with primary senior planner. Given EF, should probably consider REGISTERED LAND SURVEYOR with or without ICD, this could be done as an outpatient.
Thoracentesis could be considered if effusions fail to improve with IV furosemide. Will recheck chest x-ray on Thursday.
Trial of beta-javier, need to find out about Entresto, spironolactone, SGLT2 antagonists, ICD etc.
-Presented with progressive shortness of breath. Found to be in acute heart failure with proBNP 4030. Chest CT with large right and moderate left pleural effusions.
-Diuresing with IV Lasix. Continue IV Lasix 40 mg twice daily.
-Creatinine stable at 1.0. Weight down to 198 pounds.
-Follow daily weights, I&O's.
-CHF education
-Echo 10/07 with EF down to 25%. Previously approximately 35%. On lisinopril 20 mg daily as outpatient.
-EKG SR with 1st degree AV block and PVCs. Stable. Troponin 0.023. No chest pain.
-Previously has had significant bradycardia which his why he is not on BB medication. Discussed PPM in the past, however was deferred in the past and has Linq monitor in place.
-Blood pressure is stable, however he does have history of orthostatic hypotension which previously has limited up titration of medical therapy.
-Consider SGLT2 inhibitor. Will have case management assist the cost.
-Consider thoracentesis for pleural effusions.
-Spoke to patient's daughter on the phone for 7:15, reviewing clinical course and plan at this time.
HPI: Sanju is an 87 year old male with PMH of chronic HFrEF, CM, TAVR, CAD s/p CABG, HTN, HLD, LBBB, PVCs, and DM2. He presented to [facility] for evaluation of progressively worsening SOB. He states SOB started weeks ago and he was seen in the
cardiology office and was started on PO lasix 20mg daily. This then was later uptitrated to 40mg daily. Despite increased dose, he reported no significant diuresis at home and his SOB continued to worsen. He then came to ER for evaluation 10/07. He
reports he has been waking up gasping for air. Denies any LE edema and denies any weight gain at home. In ER, he was found to have elevated proBNP at [address] of chest showed no evidence of PE, however he was noted to have large R and moderate L
pleural effusion with mild pulmonary edema. He was started on IV lasix and reports some improvement in his breathing this AM. He denies chest pain or palpitations.
Progress Note - Deckhand Shrimp Boat
Subjective
Date of Service: October 10, 2023:
PMH/PSH//SH: Reviewed
Allergies: Carvedilol, Biaxin, simvastatin, sulfa
Outpatient meds: Amlodipine 2.5, Abilify, aspirin, atorvastatin 40 mg a day, furosemide 20 mg a day, lisinopril 20 mg daily
Current meds: Amlodipine 2.5 mg at bedtime, Abilify 2 mg at bedtime, aspirin 325 mg daily, atorvastatin 40 mg a day, Lexapro 20 mg a day, lisinopril 20 mg a day, enoxaparin, furosemide 40 IV twice daily
ROS negative except as described above
pulse 74, weight is 89.8 kg down 0.4 kg
158/83, he looks much better, lungs are clear, neck veins okay, soft systolic murmur at base, slightly louder at apex, no edema, head and neck exam unremarkable
CO2 is 31, BUN/creatinine are 20 and 1.0, potassium is 4.1
Objective
Labs:
10/09/23 04:51
10/10/23 06:36
Labs
Hgb 13.3 g/dL (13.0-18.0) 10/09/23 04:51
Hct 37.9 % (39.0-52.0) L 10/09/23 04:51
Plt Count 160 10^3/uL (130-400) 10/09/23 04:51
Sodium 136 mmol/L (135-145) 10/10/23 06:36
Potassium 4.1 mmol/L (3.5-5.1) 10/10/23 06:36
BUN 20 mg/dl (9-20) 10/10/23 06:36
Creatinine 1.0 mg/dL (0.7-1.3) 10/10/23 06:36
Glucose 116 mg/dl (70-99) H 10/10/23 06:36
Troponins
10/08/23
15:06
Troponin I 0.023
Vital Signs and I&O:
Vital Signs
Temp Pulse Resp BP Pulse Ox
36.4 C 74 16 158/83 92
10/10/23 15:40 10/10/23 15:40 10/10/23 15:40 10/10/23 15:40 10/10/23 15:40
Vital Signs
Temp Pulse Resp BP Pulse Ox
36.4 C 74 16 158/83 92
10/10/23 15:40 10/10/23 15:40 10/10/23 15:40 10/10/23 15:40 10/10/23 15:40
Intake & Output
10/08/23 10/09/23 10/10/23 10/11/23
07:59 07:59 07:59 07:59
Intake Total 240 / 240 1160 / 1160
Output Total 1100 / 1100 2000 / 1999
Balance -860 / -860 -840 / -840
Physical Exam
Physical Exam
See above
[2023-10-10 17:39] LABS: Glucose - Point of Care 149 mg/dl (70-99)
[2023-10-10] MEDS: LOVENOX 40 MG SC (17:55)
[2023-10-10] MEDS: ABILIFY 2 MG PO (21:28)
[2023-10-10] MEDS: NORVASC 2.5 MG PO (21:28)
[2023-10-10 21:30] LABS: Glucose - Point of Care 108 mg/dl (70-99)
[2023-10-11] VITALS (7 sets, daily range): BP systolic 130–162; BP diastolic 67–82
[2023-10-11 07:45] LABS: Glucose - Point of Care 111 mg/dl (70-99)
[2023-10-11 08:00] LABS: Blood Urea Nitrogen 20 mg/dl (9-20); Carbon Dioxide 30 mmol/L (22-30); Chloride 98 mmol/L (98-107); Estimated Creatinine Clearance 72 ml/min; Glucose 102 mg/dl (70-99); Potassium 3.4 mmol/L (3.5-5.1); Sodium 137 mmol/L (135-145); eGFR > 60.00
[2023-10-11] MEDS: LIPITOR 40 MG PO (08:10)
[2023-10-11] MEDS: ZESTRIL 20 MG PO (08:10)
[2023-10-11] MEDS: LASIX 60 MG PO (08:10)
[2023-10-11] MEDS: LEXAPRO 20 MG PO (08:11)
[2023-10-11] MEDS: ALDACTONE 12.5 MG PO (08:11)
[2023-10-11] MEDS: ASPIRIN 325 MG PO (08:11)
[2023-10-11] MEDS: COLACE 100 MG PO ×2 (08:11→19:26)
--- NOTE | 2023-10-11 10:15 | W.PN.HOSP.TC ---
Today's Communication/Plan
-
Lasix. IR eval for thoracentesis.
Assessment / Plan
Assessment / Plan
Physical exam:
General: Acutely ill
HEENT: Normocephalic, Atraumatic and Moist Mucous Membranes
Respiratory: Bilateral coarse crackles; Negative Wheezes or Rhonchi
Cardiac: Regular Rhythm and S1/S2
GI: Soft, Nontender and Nondistended
Musculoskeletal: No Clubbing, No Cyanosis and No Edema
Neuro: Awake, Alert and Oriented
Psych: Calm
A/P:
Heart Failure Reduced EF, Acute Exacerbation
Bilateral pleural effusions
Moderate MR
Severe s/p TAVR
Changed IV diuretics to oral since yesterday--> Lasix 60 mg p.o. daily
Monitor strict I/O
Monitor daily weight
Monitor renal function and electrolytes
Reviewed latest echocardiogram on our system and EF in September down to 25% from 35% previously.
Continue guideline-directed medical therapy for heart failure (GDMT)--> unable to do beta-javier due to bradycardia. Continue ALPHONSO inhibitor. Consideration for SGLT2 inhibitor and Entresto.
Fluid restriction
Salt restriction
Heart failure education
Follow up clinical response
Appreciated cardiology consult
Repeat CXR today, PA and lateral. The problem with the chest x-ray, and has not been very accurate determination effusions and last CT scan shows right more than left pleural effusion. Will request IR consult for evaluation of right thoracentesis
today.
Discussed with daughter over the phone today. Daughter would like to address the pleural effusions issue prior to taking him home. I explained to daughter that he might not need thoracentesis if the pleural effusions have decreased with diuresis
but she was IR to evaluate first. Once we have settled this, probably discharge within next 24 hours.
Coronary Artery Disease s/p CABG
-continue MEATCUTTER asa/statin
Essential Hypertension
-MEATCUTTER Lisinopril, amlodipine
Hyperlipidemia
-MEATCUTTER statin
Depression
-On escitalopram and Abilify
DVT PPx Lovenox
FULL CODE
Anticipated Discharge: Within 24 hours
Subjective/Interval History
-
Date of Service: October 11, 2023
Patient feels less shortness of breath. No chest pain. Less peripheral edema
Objective Data
-
Labs:
Laboratory Results
10/11/23
05:45
Sodium 137
Potassium 3.4 L
Chloride 98
Carbon Dioxide 30
BUN 20
Creatinine 0.8
Glucose 102 H
Calcium 9.0
Vital Signs:
Vital Signs
Temp Pulse Resp BP Pulse Ox
98.2 F 75 18 146/74 94
10/11/23 07:57 10/11/23 07:57 10/11/23 07:57 10/11/23 07:57 10/11/23 07:57
I&O
10/10/23 10/11/23 10/12/23
06:59 06:59 06:59
Intake Total 1160 / 1160 1200 / 1200
Output Total 1999 / 1999
Balance -840 / -840 -775 / -775
[2023-10-11 11:19] LABS: Glucose - Point of Care 161 mg/dl (70-99)
[2023-10-11] MEDS: KCL 40 MEQ PO (11:46)
--- NOTE | 2023-10-11 11:58 | W.PN.UPDATE ---
Update Note
Progress Note Update
- Imaging reviewed. Trace bilateral effusions on current CXR, improved compared to prior CT. No indication for thoracentesis currently.
--- NOTE | 2023-10-11 13:22 | CM ---
poker room manager reviewed patient's chart and contacted patient's insurance and spoke with [facility] pharmacy, [facility] is closed today, patient's insurance covers Farxiga, Jardiance and Entresto with a copay of $22 per month.
Plan; Patient is currently ambulating 150 feet with out assisted device, home when stable.
--- NOTE | 2023-10-11 16:19 | W.PN.CARDCBS ---
Today's Communication / Plan
-
Doing well,
No role for thoracentesis at present
From my standpoint okay for discharge in a.m.
Recommended medications at discharge
Impression / Plan
-
PCP: Dr. Nieves
Treater Helper: Dr. Strickland
Impression:
Presented with progressive SOB
Acute on chronic HFrEF
b/l pleural effusions
CM, EF 25% by echo 10/08/23
s/p TAVR for severe 2018
CAD s/p CABG with VILLAR to LAD, SVG to Diag, SVG seq to Ramus and OM-1, SVG to distal RCA at [facility] 09/2012
Hypertension
Hyperlipidemia
Chronic LBBB
h/o frequent PVCs, previously 4% PVC burden by monitoring 2017
DM 2
h/o tobacco abuse
48 hour Holter 02/10/18: SR heart rate ranging 45-111 bpm, no significant pauses, occasional to frequent PVCs burden of 4%
Echo 01/27/22: EF 30-35%, mild MR, s/p TAVR with mean gradient 18 mmHg, mild aortic regurgitation
Echo 07/17/2022: EF 35%, paradoxical septal motion consistent with left bundle branch block, inferior and inferolateral wall hypokinesis, stage I diastolic dysfunction, mildly enlarged RV size, normal RV function, mild MR, #26 Driscoll JOZEF 3 TAVR
with peak/mean gradients 22/14 mmHg, mild AR, no significant change compared to prior
Echo 10/08/2023: EF 25%, global hypokinesis with regional variation, inferior and inferolateral rodas are more severely hypokinetic, stage II diastolic dysfunction, at least moderate MR, well-seated TAVR with peak/mean gradients 12/7 mmHg, mild
paravalvular AI, moderate TR, estimated PAP 59 mmHg
Plan:
He looks well, heart failure seems appropriately controlled.
Chest x-ray shows minimal effusions, will not require thoracentesis.
Spironolactone and Jardiance have been started during this hospital stay.
As outpatient, lisinopril should probably be transition to Entresto if possible.
Avoid beta-javier given history of depression.
He will require a follow-up echo after meds have been optimized to determine if ICD implantation is required.
Okay for discharge tomorrow from our standpoint.
Recommended cardiac meds at discharge:
Amlodipine 2.5 mg daily
Aspirin 81 mg a day (reduced dose)
Atorvastatin 40 mg a day
Lisinopril 20 mg daily
Furosemide 60 mg daily (higher dose)
Spironolactone 12.5 mg daily (new)
Jardiance 10 mg daily (new)
Please check BMP in 1 week
Follow-up visit November 02 at 10 [facility] with Yen Barnett
HPI: Sanju is an 87 year old male with PMH of chronic HFrEF, CM, TAVR, CAD s/p CABG, HTN, HLD, LBBB, PVCs, and DM2. He presented to [facility] for evaluation of progressively worsening SOB. He states SOB started weeks ago and he was seen in the
cardiology office and was started on PO lasix 20mg daily. This then was later uptitrated to 40mg daily. Despite increased dose, he reported no significant diuresis at home and his SOB continued to worsen. He then came to ER for evaluation 10/07. He
reports he has been waking up gasping for air. Denies any LE edema and denies any weight gain at home. In ER, he was found to have elevated proBNP at [address] of chest showed no evidence of PE, however he was noted to have large R and moderate L
pleural effusion with mild pulmonary edema. He was started on IV lasix and reports some improvement in his breathing this AM. He denies chest pain or palpitations.
Progress Note - Treater Helper
Subjective
Date of Service: October 11, 2023:
Patient feels well
PMH/PSH/FH/SH: Reviewed
Allergies: Carvedilol, Biaxin, simvastatin, sulfa
Outpatient medications reviewed. Cardiac meds are amlodipine 2.5 mg daily, aspirin 325 mg daily, atorvastatin 40 mg daily, Lexapro, furosemide 20 mg a day, lisinopril 20 mg daily
Current medications: Amlodipine 2.5 at bedtime, Abilify 2 mg a day, aspirin 325 mg daily, atorvastatin 40 mg a day, Colace, Lexapro 20 mg a day, lisinopril 20 mg a day, Lovenox 40 mg daily, spironolactone 12.5 mg daily, furosemide 60 mg a day
ROS: Negative except as above
134/82, pulse 75, sats 98, weight is 89.4 kg, down 0.4 kg, if accurate down 5.4 kg since admission, intake and output -0.8 L,
No distress, head neck exam unremarkable, lungs are clear, cardiac regular rate and rhythm, , Neck veins okay no obvious murmurs, neuro nonfocal abdomen benign extremities without edema
chest x-ray with minimal effusions
BUN and creatinine 20 and 0.8, Potassium 3.4
Objective
Labs:
10/09/23 04:51
10/11/23 05:45
Labs
Hgb 13.3 g/dL (13.0-18.0) 10/09/23 04:51
Hct 37.9 % (39.0-52.0) L 10/09/23 04:51
Plt Count 160 10^3/uL (130-400) 10/09/23 04:51
Sodium 137 mmol/L (135-145) 10/11/23 05:45
Potassium 3.4 mmol/L (3.5-5.1) L 10/11/23 05:45
BUN 20 mg/dl (9-20) 10/11/23 05:45
Creatinine 0.8 mg/dL (0.7-1.3) 10/11/23 05:45
Glucose 102 mg/dl (70-99) H 10/11/23 05:45
Vital Signs and I&O:
Vital Signs
Temp Pulse Resp BP Pulse Ox
37.1 C 75 18 134/82 98
10/11/23 15:02 10/11/23 15:02 10/11/23 15:02 10/11/23 15:02 10/11/23 15:02
Vital Signs
Temp Pulse Resp BP Pulse Ox
37.1 C 75 18 134/82 98
10/11/23 15:02 10/11/23 15:02 10/11/23 15:02 10/11/23 15:02 10/11/23 15:02
Intake & Output
10/09/23 10/10/23 10/11/23 10/12/23
07:59 07:59 07:59 07:59
Intake Total 240 / 240 1160 / 1160 1200 / 1200
Output Total 1100 / 1100 1999 / 1999 1974 / 1974
Balance -860 / -860 -840 / -840 -775 / -775
Physical Exam
Physical Exam
see above
[2023-10-11 16:32] LABS: Glucose - Point of Care 114 mg/dl (70-99)
[2023-10-11] MEDS: LOVENOX 40 MG SC (17:43)
[2023-10-11 21:41] LABS: Glucose - Point of Care 145 mg/dl (70-99)
--- NOTE | 2023-10-11 22:14 | PTCARENOTE ---
Assumed care of pt from previous nurse. Pt denies pain. Pt is on tele running nsr with first degree heart block. Lungs are clear, pt is on ra sating 94%. will cont to monitor.
[2023-10-11] MEDS: NORVASC 2.5 MG PO (22:20)
[2023-10-11] MEDS: ABILIFY 2 MG PO (22:20)
[2023-10-12 03:14] VITALS: BP 127/61
[2023-10-12 07:00] VITALS: BP 150/82
[2023-10-12 07:02] LABS: Blood Urea Nitrogen 19 mg/dl (9-20); Calcium 8.9 mg/dl (8.4-10.2); Carbon Dioxide 29 mmol/L (22-30); Chloride 99 mmol/L (98-107); Estimated Creatinine Clearance 72 ml/min; Glucose 108 mg/dl (70-99); Potassium 3.8 mmol/L (3.5-5.1); Sodium 135 mmol/L (135-145); eGFR > 60.00
[2023-10-12 07:49] LABS: Glucose - Point of Care 117 mg/dl (70-99)
[2023-10-12] MEDS: JARDIANCE 10 MG PO (08:51)
[2023-10-12] MEDS: COLACE 100 MG PO (08:51)
[2023-10-12] MEDS: LASIX 60 MG PO (08:52)
[2023-10-12] MEDS: ASPIRIN 325 MG PO (08:54)
[2023-10-12] MEDS: ALDACTONE 12.5 MG PO (08:55)
[2023-10-12] MEDS: ZESTRIL 20 MG PO (08:55)
[2023-10-12] MEDS: LEXAPRO 20 MG PO (08:56)
[2023-10-12] MEDS: LIPITOR 40 MG PO (08:56)
[2023-10-12 10:23] VITALS: BP 133/79; BP 138/77; PULSE 69; O2SAT 95
[2023-10-12 11:00] VITALS: BP 146/76
--- NOTE | 2023-10-12 11:02 | W.PN.HOSP.TC ---
Today's Communication/Plan
-
Discharge
Assessment / Plan
Assessment / Plan
Gen-AAOx3, NAD
HEENT-NC, AT, anicteric, clear oral mm
Neck-supple
CV-reg, no M, +S1/S2
Lungs-clear B/L
Abd-soft, NT, ND
Ext-no edema
Musculoskeletal-no cyanosis, clubbing
Skin-warm and dry
Neuro-grossly non-focal
Psych-calm, cooperative
Acute heart Failure Reduced EF, Acute Exacerbation
Moderate MR
Severe s/p TAVR
Changed IV diuretics to oral since yesterday--> Lasix 60 mg p.o. daily
Monitor strict I/O
Monitor daily weight
Monitor renal function and electrolytes
Reviewed latest echocardiogram on our system and EF in September down to 25% from 35% previously.
Continue guideline-directed medical therapy for heart failure (GDMT)--> unable to do beta-javier due to bradycardia. Continue ALPHONSO inhibitor. Consideration for SGLT2 inhibitor and Entresto.
Fluid restriction
Salt restriction
Heart failure education
Follow up clinical response
Appreciated cardiology consult
Minimal pleural effusions, not enough for thoracentesis.
Coronary Artery Disease s/p CABG
-continue SIDEHAND asa/statin
Essential Hypertension
-SIDEHAND Lisinopril, amlodipine
Hyperlipidemia
-SIDEHAND statin
Depression
-On escitalopram and Abilify
DVT PPx Lovenox
FULL CODE
Dispo -medically stable for discharge. Updated daughter Zaina on the phone. All questions answered. Outpatient follow-up.
33 minutes spent in discharge process.
Anticipated Discharge: Today
Subjective/Interval History
-
Date of Service: October 12, 2023
Patient seen and examined. No complaints.
Objective Data
-
Labs:
Laboratory Results
10/12/23
06:03
Sodium 135
Potassium 3.8
Chloride 99
Carbon Dioxide 29
BUN 19
Creatinine 0.8
Glucose 108 H
Calcium 8.9
Vital Signs:
Vital Signs
Temp Pulse Resp BP Pulse Ox
97.8 F 76 16 150/82 97
10/12/23 07:00 10/12/23 08:55 10/12/23 07:00 10/12/23 08:55 10/12/23 07:00
I&O
10/11/23 10/12/23 10/13/23
06:59 06:59 06:59
Intake Total 1200 / 1200 1920 / 1920
Output Total 1974 / 1974 1500 / 1500
Balance -775 / -775 420 / 420
Review of Systems
-
History Source: Patient
All other systems: Reviewed and negative
--- NOTE | 2023-10-12 11:09 | W.DS.TRANS ---
DC Summary - [employer]
-
Discharge Instructions:
Discharge Diagnosis/Procedures Congestive heart failure exacerbation
Diet 2 Gram Sodium,Low Fat,Low Cholesterol,Restrict
fluids to 48 oz
Activity As tolerated
Driving Restrictions As prior to admission
Bathing Restrictions None
Blood Work BMP in 1 week with your primary care doctor
Instructions: *DCA Heart Failure Instructions
Stand-Alone Forms:
Changes to Home Medications: No
Discharge Medications:
DC Medications w/original date entered in [facility]
atorvastatin 40 mg tablet 40 mg PO DAILY High cholesterol 10/29/17
docusate sodium 100 mg capsule (Colace) 100 mg PO BID Constipation 10/29/17
lisinopril 20 mg tablet 20 mg PO DAILY Blood pressure 10/29/17
aripiprazole 2 mg tablet 2 mg PO HS Mental Health/Anxiety 07/16/22
aspirin 325 mg tablet 325 mg PO DAILY Blood clot prevention/tx 07/16/22
escitalopram oxalate 20 mg tablet 20 mg PO DAILY Depression 07/16/22
multivitamin 1 tab PO DAILY Supplement 07/16/22
polyethylene glycol 3350 17 gram oral powder packet (Miralax) 17 g PO DAILY PRN constipation 07/16/22
amlodipine 5 mg tablet 2.5 mg PO HS Blood Pressure 10/08/23
psyllium seed (sugar) oral powder 1 tsp PO HS Constipation 10/08/23
empagliflozin 10 mg tablet (Jardiance) 10 mg PO DAILY #30 tabs 10/12/23
furosemide 40 mg tablet 60 mg (1.5 x 40 mg) PO DAILY #30 tabs 10/12/23
spironolactone 25 mg tablet 12.5 mg (1/2 x 25 mg) PO DAILY #30 tabs 10/12/23
Home Medication Changes
Pending Results: No
== END 2023-10-12 12:45 | disposition home or self-care (01) | DRG 291 ==
LOC: 4 WEST ACU 22:18
PROVIDERS: Emergency Medicine; Hospitalist; ADMITTING PHYSICIAN Student in an Organized Health Care Education/Training Program; ATTENDING PHYSICIAN Hospitalist; EMERGENCY PHYSICIAN Emergency Medicine; FAMILY PHYSICIAN Family Medicine; OTHER PHYSICIAN Internal Medicine Cardiovascular Disease
DX: I11.0 Hypertensive heart disease with heart failure (principal); I50.23 Acute on chronic systolic (congestive) heart failure; J98.11 Atelectasis; R06.89 Other abnormalities of breathing; I25.10 Atherosclerotic heart disease of native coronary artery without angina pectoris; I44.7 Left bundle-branch block, unspecified; F32.A Depression, unspecified; I44.0 Atrioventricular block, first degree; E11.9 Type 2 diabetes mellitus without complications; E78.00 Pure hypercholesterolemia, unspecified; Z79.82 Long term (current) use of aspirin; Z95.2 Presence of prosthetic heart valve; Z95.1 Presence of aortocoronary bypass graft; Z87.891 Personal history of nicotine dependence; Z88.1 Allergy status to other antibiotic agents; Z88.2 Allergy status to sulfonamides; Z88.8 Allergy status to other drugs, medicaments and biological substances
CPT/HCPCS: 71046; 71275; 80048; 80053; 80061; 82248; 82306; 82607; 82962; 83036; 83735; 83880; 84443; 84484; 85025; 85027; 93005; 97116; 97162; 97166; 99285; Q9967

== ENCOUNTER → 2024-01-21 12:44 | Outpatient (REF) | payer OTHER, SELFPAY | LOC: HWRCS 12:44 | PROVIDERS: ATTENDING PHYSICIAN Internal Medicine Cardiovascular Disease; FAMILY PHYSICIAN Family Medicine | DX: Z95.2 Presence of prosthetic heart valve (principal) | CPT/HCPCS: 93306 ==

== ENCOUNTER → 2024-08-24 13:38 | Outpatient (REF) | payer OTHER, SELFPAY | LOC: HWRCS 13:38 | PROVIDERS: ATTENDING PHYSICIAN Internal Medicine Cardiovascular Disease; FAMILY PHYSICIAN Family Medicine | DX: I50.22 Chronic systolic (congestive) heart failure (principal) | CPT/HCPCS: 93306 ==

== ENCOUNTER → 2025-05-08 13:41 | Outpatient (REF) | payer OTHER, SELFPAY | LOC: HWRCS 13:41 | PROVIDERS: ATTENDING PHYSICIAN Internal Medicine Cardiovascular Disease; FAMILY PHYSICIAN Family Medicine | DX: Z95.2 Presence of prosthetic heart valve (principal); I50.9 Heart failure, unspecified; I25.10 Atherosclerotic heart disease of native coronary artery without angina pectoris; E78.2 Mixed hyperlipidemia | CPT/HCPCS: 93306 ==